=== PATIENT | female | born 1935 | race Caucasian/White ===

== ENCOUNTER 2016-09-09 10:32 | Inpatient (IN) | payer MEDICARE, BC ==
[~2016-09-09 10:32] MED LIST: ARIMIDEX1 M1 PO; ASPIR 8181 M1 PO; ASPIR-TRIN325 M2 PO; ASPIRIN EC81 MG PO; BACTRIM 400-801 EAC1 PO; CALCIUM WITH VI1 TAB; CALCIUM600 M1 PO; CPAP; CYMBALTA60 M1 PO; EVISTA60 MG; FLONASE ALLERG9.9 ML; FOSAMAX70 M1 PO; GLUCOPHAGE850 MG; HYDROCHLOROTHIA25 MG; HYZAAR 100-251 EACH PO; JANUMET 50-1,01 EACH PO; KLOR-CON 1010 MEQ; LEVOTHYROXINE125 MC1 PO; LIPITOR40 M1 PO; LIPITOR40 MG; MOBIC15 M2 PO; MOBIC15 MG; NORCO 5-325 TA1 EACH PO; NORVASC2.5 M1 PO; NORVASC5 M2 PO; POTASSIUM CHLO10 ME2 PO; PREMARIN0.9 M1 PO; PROTONIX40 M2 PO; SYNTHROID125 MCG; SYNTHROID137 MC1 PO; TOPROL XL25 M1 PO; VASOTEC10 M2 PO; VASOTEC10 MG; VITAMIN B-650 M3 PO; VITAMIN D
[2016-09-09 11:32] LABS: PROTHROMBIN TIME 11.5 SECONDS (9.0-13.6)
[2016-09-09 11:38] LABS: BASO % 1.1 % (0-2); BASO ABSOLUTE COUNT 0.1 tho/cmm (0.0-0.2); EOS % 6.9 % (0-7); EOSINOPHIL ABSOLUTE COUNT 0.8 tho/cmm (0.0-0.7); HCT-HEMATOCRIT 33.5 % (34.0-49.0); HGB-HEMOGLOBIN 11.1 gm/dl (12.0-15.5); IMMATURE GRANULOCYTES ABSOLUTE 0.09 tho/cmm (0-0.03); IMMATURE GRANULOCYTES PERCENT 0.8 % (0-0.3); LYMPH % 26.1 % (20-45); LYMPH ABSOLUTE COUNT 2.9 tho/cmm (0.8-4.5); MCH (MEAN CORPUSCULAR HGB) 31.3 pg (28.0-32.0); MCHC MEAN CORPUSCULAR HGB CONC 33.1 % (32.0-36.0); MCV (MEAN CELL VOLUME) 94.4 fl (82.0-96.0); MEAN PLATELET VOLUME 9.3 cmc (9.4-12.4); MONO % 8.1 % (0-12); MONOCYTE ABSOLUTE COUNT 0.9 tho/cmm (0.0-1.2); NEUTROPHIL ABSOLUTE COUNT 6.4 tho/cmm (1.6-8.0); NEUTROPHIL-AUTOMATED 6.4 tho/cmm (1.6-8.0); PLATELET COUNT 427 tho/cmm (150-450); RED BLOOD COUNT 3.55 mil/cmm (4.00-5.20); WHITE BLOOD COUNT 11.2 tho/cmm (4.0-10.0)
[2016-09-09 11:43] LABS: ANION GAP 15 mmol/L (0-20); BLOOD UREA NITROGEN 16 mg/dl (6-24); CALCIUM 8.7 mg/dl (8.5-10.5); CARBON DIOXIDE-VENOUS 25 mmol/L (22-32); CHLORIDE 108 mmol/l (96-110); CREATININE 0.84 mg/dl (0.50-1.10); GLUCOSE 113 mg/dL (70-110); POTASSIUM 4.4 mmol/L (3.7-5.1); SODIUM 144 mmol/L (135-145); eGFR VALUE FOR BLACK 77 mL/Min
[2016-09-10] MEDS ORDERED: TYLENOL325 M2 PO (11:03)
[2016-09-10] MEDS ORDERED: CALCIUM CARBON500 M2 PO (11:04)
[2016-09-10] MEDS ORDERED: ASPIRIN325 M3 PO (11:09)
[2016-09-10] MEDS ORDERED: ULTRAM50 M1 PO (11:11)
[2016-09-10] MEDS ORDERED: ROXICODONE5 M2 PO (11:27)
== END 2016-09-10 13:43 | DRG 483 ==
LOC: SHSB 10:32 → ORE 12:48 → PACU 15:52 → 5EA 16:40
PROVIDERS: ADMIT Orthopaedic Surgery Sports Medicine
PROC: 0RRK0JZ Replacement of Left Shoulder Joint with Synthetic Substitute, Open Approach (ICD-10-PCS; principal; 2016-09-09)
PROC: 5A09357 Assistance with Respiratory Ventilation, Less than 24 Consecutive Hours, Continuous Positive Airway Pressure (ICD-10-PCS; 2016-09-09)
DX: M19.012 Primary osteoarthritis, left shoulder (principal); E11.9 Type 2 diabetes mellitus without complications; C55 Malignant neoplasm of uterus, part unspecified; I10 Essential (primary) hypertension; Z85.850 Personal history of malignant neoplasm of thyroid; Z85.3 Personal history of malignant neoplasm of breast
CPT/HCPCS: C1713; G8978-GO-CJ; G8978-GP-CJ; G8979-GO-CJ; G8979-GP-CJ; G8980-GO-CJ; G8980-GP-CJ; J0171; J0690; J1885; J2270; J2795